=== PATIENT | female | born 1940 | race Two or more races ===

== ENCOUNTER → 2016-08-22 | Outpatient (CLI) | END | disposition home or self-care (01) | DX: M25.562 Pain in left knee (principal); M25.561 Pain in right knee; M17.0 Bilateral primary osteoarthritis of knee; I10 Essential (primary) hypertension; E11.9 Type 2 diabetes mellitus without complications; E03.9 Hypothyroidism, unspecified | CPT/HCPCS: 20610; G0463; J1030 ==